=== PATIENT | male | born 2000 ===

== ENCOUNTER 2022-12-24 11:54 | Outpatient (REF) | payer BC, MEDICAID, SELFPAY ==
[2022-12-24 14:11] LABS: Absolute Basophil Count 0.04 10^3/uL (0.0-0.2); Absolute Eosinophil Count 0.05 10^3/uL (0.0-0.7); Basophils % 0.6; Eosinophils % 0.7; HCT 38.8 % (40.0-50.0); HGB 13.3 g/dL (13.5-17.5); Immature Grans % 1.4; Lymphocytes % 35.3; MCH 28.7 pg (27.0-33.0); MCHC 34.3 % (32.0-36.0); MCV 84 fL (80-95); MPV 9.1 fL (8.0-11.0); Monocytes % 5.6; Neutrophils % 56.4; Platelet Count 342 10^3/uL (130-400); RBC 4.64 10^6/uL (4.36-5.78); RDW 12.1 % (11.8-14.1); RDW-SD 36.7 fL; WBC 7.09 10^3/uL (4.4-10.8)
[2022-12-24 14:24] LABS: Iron 103 ug/dL (65-175); Total Iron Binding Capacity 307 ug/dL (250-450); Transferrin Sat 34 % (20-55)
[2022-12-24 14:35] LABS: Ferritin 217 ng/mL (26-388)
[2022-12-27 13:16] LABS: IgA 149 mg/dL (85-499); Interpretation (See Note); Tissue Transglutaminase IgA 1.6 U/mL (<4.0)
== END 2022-12-24 11:55 | disposition home or self-care (01) ==
LOC: NCHCN 11:54
PROVIDERS: Visit Provider Nurse Practitioner Family
DX: R10.9 Unspecified abdominal pain (principal); D64.9 Anemia, unspecified; F32.89 Other specified depressive episodes; R45.851 Suicidal ideations; R19.7 Diarrhea, unspecified
CPT/HCPCS: 82784; 83516; 82728; 83540; 83550; 85025